=== PATIENT | female | born 1965 | race African-American/Black ===

== ENCOUNTER 2021-06-05 23:30 | Inpatient (IN) | payer OTHER ==
[~2021-06-05] VITALS: Ht 163.8 cm; Wt 102.5 kg
[2021-06-06] MEDS ORDERED: IV NORMAL SALINE 500 ML BAG IV ONE (00:15)
[2021-06-06 00:37] LABS: HEMATOCRIT 30.1 % (31.2-41.9); MEAN CORPUSCULAR VOLUME 85.9 fL (75.5-95.3); PLATELET COUNT (AUTO) 515 K/uL (179-408)
[2021-06-06 00:40] LABS: CREATININE 6.1 mg/dL (0.6-1.3); POTASSIUM 5.2 mmol/L (3.5-5.1)
[2021-06-06] MEDS ORDERED: [UNRECOGNIZED DRUG - CODE] PO (00:49)
[2021-06-06] MEDS ORDERED: MINO2.5T PO (00:49)
[2021-06-06] MEDS ORDERED: CARB15DR OP (00:49)
[2021-06-06] MEDS ORDERED: METO-357 PO (00:49)
[2021-06-06] MEDS ORDERED: ASPI81TA31 PO (00:49)
[2021-06-06] MEDS ORDERED: GABA-532 PO (00:49)
[2021-06-06] MEDS ORDERED: SEVE800T8 PO (00:49)
[2021-06-06] MEDS ORDERED: CLON0.2T PO (00:49)
[2021-06-06] MEDS ORDERED: NIFE-34 PO (00:49)
[2021-06-06] MEDS ORDERED: ONDA4TAB5 PO (00:49)
[2021-06-06] MEDS ORDERED: ACET-2154 PO (00:49)
[2021-06-06] MEDS ORDERED: METO-295 PO (00:49)
[2021-06-06] MEDS ORDERED: INSULIN LISPRO (00:49)
[2021-06-06] MEDS ORDERED: RENAL MULTIVITAMIN PO (00:49)
[2021-06-06] MEDS ORDERED: SENN-261 PO (00:49)
[2021-06-06] MEDS ORDERED: ONDA4SYR IM (00:49)
[2021-06-06] MEDS ORDERED: NPH,100I SQ (00:49)
[2021-06-06 00:53] LABS: BILIRUBIN,DIRECT 0.5 mg/dL (0.0-0.2); BILIRUBIN,TOTAL 0.8 mg/dL (0.2-1.0); TOTAL PROTEIN, SERUM 7.4 g/dL (6.4-8.2)
--- NOTE | 2021-06-06 01:31 | NUR ---
Pt. admitted to Telemetry, under care of Rusty Tomlin. Diagnosis: Renal Failure Belongs List completed. MRSA swab done.
[2021-06-06] MEDS ORDERED: DEXTROSE 50% 50 ML DISP.SYRIN IV PRN (01:45)
[2021-06-06] MEDS ORDERED: ACETAMINOPHEN 325 MG TABLET PO PRN (01:45)
[2021-06-06] MEDS ORDERED: ONDANSETRON 4 MG/2 ML VIAL IV PRN (01:45)
[2021-06-06 03:30] VITALS: BP 108/59
[2021-06-06] MEDS: PANTOPRAZOLE SODIUM 40 MG TABLET.DR PO SCH (06:15)
[2021-06-06] MEDS: BLOOD SUGAR DIAGNOSTIC 1 EACH STRIP VI SCH ×4 (07:00→20:51)
--- NOTE | 2021-06-06 08:30 | NUR ---
BLOOD PRESSURE RN HERE AND STATED TO HOLD ALL THE BLOOD PRESSURE MEDICATIONS .
[2021-06-06] MEDS: CHOLECALCIFEROL 1,000 UNIT TABLET PO SCH (08:44)
[2021-06-06] MEDS: SEVELAMER CARBONATE 800 MG TABLET PO SCH ×3 (08:45→18:30)
[2021-06-06] MEDS: ASPIRIN 81 MG TAB.CHEW PO SCH (08:56)
[2021-06-06] MEDS: NIFEdipine XL 60 MG TABSR PO SCH ×2 (09:00→18:30)
[2021-06-06] MEDS: CLONIDINE HCL 0.2 MG TABLET PO SCH ×2 (09:00→18:31)
[2021-06-06] MEDS: SENNOSIDES 1 TABLET PO SCH ×2 (09:00→17:00)
[2021-06-06] MEDS: METOPROLOL SUCCINATE XL 50 MG TAB.SR.24H PO SCH (09:00)
[2021-06-06] MEDS: MINOXIDIL 2.5 MG TABLET PO SCH ×2 (09:00→18:31)
[2021-06-06] MEDS: HEPARIN SODIUM,PORCINE 5,000 UNITS/ML VIAL SQ SCH ×2 (09:30→20:54)
--- NOTE | 2021-06-06 09:41 | NUR ---
DIALYSIS STARTED AT THIS TIME.
[2021-06-06 11:55] VITALS: BP 109/62
--- NOTE | 2021-06-06 12:18 | NUR ---
DIALYSIS STARTED AND 3 LITERS OUT AT THIS TIME PATIENT IS ALERT AND REQUESTING TO GET OUT OF BED BOTH EXT SWOLLEN PATIENT IS WEAK AND UNSAFE TO GET OUT OF BED AT THIS TIME. Addendum: 06/06/21 at 1659 by TAMMY ROBERTS RN DIALYSIS ENDED AT 1215
--- NOTE | 2021-06-06 12:26 | NUR ---
PHYSICAL THERAPY ORDERED TO EVALUATE PATIENTS ABILITY TO BE SAFELY OUT OF BED PATIENT IS UPSET AND YELLING AT THE TOP OF HER VOICE CALLED [facility] AND NOTIFIED THEM AND THEY STATED WILL ATTEMPT TO SEND SOMEONE TO COME TO SEE HER BUT NOT SURE WHEN THEY CAN COME. Addendum: 06/06/21 at 1409 by TAMMY ROBERTS RN SPOKE WITH [facility]
--- NOTE | 2021-06-06 12:30 | NUR ---
MADE MANY ATTEMPTS TO CHANGE DRESSINGS ON THE MULTIPLE AREA ON HER LEFT AND RIGHT LEGS INCLUDING HER SACRAL AREAS BUT SHE REFUSED STATED DID NOT WANT TO BE TOUCHED DID NOT WANT PICS TAKEN STATED THE PICS WAS TAKEN ALREADY BUT TOLD HER NEEDED TO RETAKE BUT SHE DECLINED.
--- NOTE | 2021-06-06 13:00 | NUR ---
ATE HER LUNCH BUT IS CONSTANTLY YELLING SHE IS UPSET AND WANTS TO GET OUT OF THE BED EXPLAINED TO THE PATIENT THAT IT IS VERY DIFFICULT DUE TO SAFETY ISSUES FOR HER AND THE EMPLOYEES TO GET HER UP WILL NEED TO WAIT FOR THE PHYSICAL THERAPY ORDER HAS BEEN PLACED.
--- NOTE | 2021-06-06 14:00 | NUR ---
PHYSICAL THERAPIST HERE AND SEEN PATIENT FOR EVALUATION SHE WAS DANGLED AT THE SIDE OF THE BED SHE WANTED BUT AFTER SITTING FOR A WHILE REFUSED TO GET BACK INTO BED BUT REQUESTED TO GET INTO THE W/CHAIR AND SHE WAS SEATED ON THE W/CHAIR AT THIS TIME WITH BOTH FEET ELEVATED.
--- NOTE | 2021-06-06 14:30 | NUR ---
AWAITING FOR THE WOUND CARE NURSE TO SEE PATIENT FOR CONSULT SO MAY BE IT WILL BE POSSIBLE TO CHECK HER WOUND CHANGE THE DRESSING AND MAY BE TAKE THE PICTURES.
--- NOTE | 2021-06-06 15:30 | NUR ---
PHYSICAL THERAPY BACH HERE TO PLACE PATIENT BACK INTO BED BUT SHE REFUSED TO GO BACK INTO BED WANTS TO STAY IN THE W/CHAIR EVEN THOUGH SHE WAS TOLD THAT THE THERAPISTS WERE LEAVING AND IT WILL BE VERY DIFFICULT TO BE ABLE TO GET HER BACK TO BED LATER PATIENT REFUSED DESPITE ALL THE EXPLAINATIONS.
[2021-06-06 15:57] VITALS: BP 157/73
[2021-06-06] MEDS: INSULIN REGULAR, HUMAN 300 UNIT/3 ML VIAL SQ PRN (16:44)
--- NOTE | 2021-06-06 17:05 | NUR ---
SHE IS SITTING ON THE W/CHAIR WITH BOTH LEGS EXTENDED AND ELEVATED ON A PILLOW RESTING ON THE FEET REST.
--- NOTE | 2021-06-06 18:00 | NUR ---
PATIENT REQUESTED ME TO LOWER HER LEGS AND REMOVE THE ELEVATION REMINDED HER THAT SINCE HER BOTH LEGS ARE SWOLLEN ITS BEST FOR HER TO KEEP THEM ELEVATED BUT SHE STARTED YELLING AND INSISTED THAT I REMOVE THE W/CHAIR LEGS AND RELEASE HER LEGS DOWN ON THE FLOOR PATIENTS RIGHT RESPECTED.WILL ENDORSE.
[2021-06-06 20:04] VITALS: BP 109/63
[2021-06-06] MEDS: GABAPENTIN 300 MG CAPSULE PO SCH (20:51)
[2021-06-06] MEDS: FOLIC ACID/VITAMIN B COMP W-C TABLET PO SCH (20:51)
[2021-06-07 04:40] VITALS: BP 135/74
--- NOTE | 2021-06-07 05:42 | NUR ---
Pt slept intermittently throughout the night. No distress noted at this time. Encouraged patient to limit fluid intake and to elevate lower extremities. Patient states that she understands, but is still not compliant. Safety and comfort provided. Tolerated all medications given. No other issues or concerns at this time, will endorse to day shift.
[2021-06-07 06:06] LABS: HEPATITIS B SURFACE AB Non Reactive (.); HEPATITIS B SURFACE AG Negative (Negative)
[2021-06-07] MEDS: PANTOPRAZOLE SODIUM 40 MG TABLET.DR PO SCH (06:16)
[2021-06-07 06:42] LABS: HEMATOCRIT 28.9 % (31.2-41.9); PLATELET COUNT (AUTO) 517 K/uL (179-408)
[2021-06-07] MEDS: BLOOD SUGAR DIAGNOSTIC 1 EACH STRIP VI SCH ×4 (06:45→20:29)
--- NOTE | 2021-06-07 07:00 | NUR ---
received patient in room awake, patient complaining of wanting to be transferred to wheel chair, advised he to please let us clean her up and called physical therapy to help put her in wheel chair.
[2021-06-07 07:04] LABS: CREATININE 5.5 mg/dL (0.6-1.3); MAGNESIUM 2.3 mg/dL (1.8-2.4); PHOSPHOROUS 7.8 mg/dL (2.5-4.9); POTASSIUM 5.7 mmol/L (3.5-5.1)
--- NOTE | 2021-06-07 07:07 | NUR ---
Dressing changed on BLE but patient refused to let us take pictures at this time.
--- NOTE | 2021-06-07 07:20 | NUR ---
provided morning care for patient, physical therapy transferred patient to wheel chair. breakfast provided. call light and belongings within reach. will continue to monitor.
[2021-06-07] MEDS: SENNOSIDES 1 TABLET PO SCH ×3 (09:00→17:00)
[2021-06-07] MEDS: SEVELAMER CARBONATE 800 MG TABLET PO SCH ×5 (09:05→17:34)
[2021-06-07] MEDS: ASPIRIN 81 MG TAB.CHEW PO SCH (09:05)
[2021-06-07] MEDS: CHOLECALCIFEROL 1,000 UNIT TABLET PO SCH (09:09)
[2021-06-07] MEDS: MINOXIDIL 2.5 MG TABLET PO SCH ×3 (09:09→17:35)
[2021-06-07] MEDS: HEPARIN SODIUM,PORCINE 5,000 UNITS/ML VIAL SQ SCH ×2 (09:10→21:00)
[2021-06-07] MEDS: INSULIN REGULAR, HUMAN 300 UNIT/3 ML VIAL SQ PRN ×4 (09:12→20:32)
[2021-06-07] MEDS: CLONIDINE HCL 0.2 MG TABLET PO SCH ×3 (10:28→17:34)
[2021-06-07] MEDS: NIFEdipine XL 60 MG TABSR PO SCH ×2 (10:29→17:35)
[2021-06-07] MEDS: METOPROLOL SUCCINATE XL 50 MG TAB.SR.24H PO SCH (10:30)
--- NOTE | 2021-06-07 10:32 | NUR ---
WOUND CARE CONSULT: PT ADAMANTLY REFUSED TO TURN FOR FULL SKIN ASSESSMENT OF SACRUM, BACK AND BUTTOCKS. PT PRESENTS WITH LARGE BLISTERS TO RT LOWER LEG, RT FOOT AND LEFT FOOT AND HEEL, ALL PRESENT ON ADMISSION. LEFT FOOT BLISTER IS VERY LARGE AND OPEN WITH SEROSANGUINOUS DRAINAGE. RT LOWER LEG BLISTER IS OPEN WITH SMALL AMOUNT OF SEROSANGUINOUS DRAINAGE. SACRAL SCARRING WITH FRAGILE SKIN NOTED IN ADMISSION PHOTO. DPM CONSULT CALLED TO DR PAULINO. RECOMMENDATIONS MADE FOR SKIN PROTECTION. DISCUSSED WITH NURSING STAFF. PT ARGUMENTATIVE AND UNCOOPERATIVE AT TIMES. MD IN AGREEMENT WITH PLAN OF CARE.
--- NOTE | 2021-06-07 10:40 | NUR ---
patient was seen by wound nurse, advised patient to keep legs elevated to provide better circulation but patient refused and was yelling to keep legs down. patient advised regarding condition of legs but continues to refuse to have legs elevated. call light and belongings kept within reach. will continue to monitor.
[2021-06-07] MEDS: SODIUM POLYSTYRENE SULFONATE 15 G/60 ML LIQUID UDC PO SCH ×3 (11:45→13:45)
[2021-06-07 12:00] VITALS: BP 147/79
--- NOTE | 2021-06-07 12:00 | NUR ---
patient seen by Kyle Mathur NP, with new orders to give kayexalate. advised patient to go back to bed for comfort as discussed effects of medication, physical therapy called for help.
--- NOTE | 2021-06-07 12:15 | NUR ---
patient refused to go back to bed, advised that it would help her be more comfortable with effects of medication kayexalate but patient refused to go back to bed. advised patient regarding medication and labs, but patient continue to refused medication. patient advise by Kareen THORPE to have dialysis but patient refused said she did not want to have it two days in a row. Kareen VET ASSISTANT notified.
[2021-06-07 16:00] VITALS: BP 141/77
--- NOTE | 2021-06-07 18:10 | NUR ---
patient in bed awake, patient cleaned and repositioned for comfort. no SOB, pain or discomfort noted at this time. call light within reach. will report to oncoming shift.
--- NOTE | 2021-06-07 19:30 | NUR ---
RECEIVED PT AWAKE, ALERT AND ORIENTEDX4. PT IN NO ACUTE DISTRESS. IV INTACT. SAFETY AND COMFORT PROVIDED. WILL CONTINUE TO MONITOR.
[2021-06-07 20:30] VITALS: BP 144/86
[2021-06-07] MEDS: FOLIC ACID/VITAMIN B COMP W-C TABLET PO SCH (21:00)
[2021-06-07] MEDS: GABAPENTIN 300 MG CAPSULE PO SCH (21:00)
[2021-06-08 04:17] VITALS: BP 142/74
[2021-06-08 06:24] LABS: HEMATOCRIT 28.4 % (31.2-41.9); MEAN CORPUSCULAR VOLUME 85.3 fL (75.5-95.3); PLATELET COUNT (AUTO) 534 K/uL (179-408)
[2021-06-08] MEDS: PANTOPRAZOLE SODIUM 40 MG TABLET.DR PO SCH (06:27)
--- NOTE | 2021-06-08 06:48 | NUR ---
PT SLEPT INTERMITTENTLY. PT IN NO ACUTE DISTRESS. IV INTACT. PRESCRIBED MEDICATION GIVEN AND PT TOLERATED IT WELL. PT TURNED AND REPOSITIONED. PT NONCOMPLIANT WITH MEDICATIONS ONLY TOOK HER INSULIN AND REFUSED THE REST OF HER MEDICATIONS ON MY SHIFT. Wound dressing change. SAFETY AND COMFORT PROVIDED. ALL NEEDS ARE MET. WILL ENDORSE TO INCOMING NURSE FOR CONTINUITY OF CARE.
[2021-06-08] MEDS: BLOOD SUGAR DIAGNOSTIC 1 EACH STRIP VI SCH ×2 (06:49→11:30)
[2021-06-08 06:53] LABS: MAGNESIUM 2.5 mg/dL (1.8-2.4)
[2021-06-08] MEDS: SEVELAMER CARBONATE 800 MG TABLET PO SCH ×2 (08:00→13:07)
[2021-06-08 08:12] LABS: PHOSPHOROUS 8.8 mg/dL (2.5-4.9); POTASSIUM 6.6 mmol/L (3.5-5.1)
[2021-06-08] MEDS: CLONIDINE HCL 0.2 MG TABLET PO SCH (09:00)
[2021-06-08] MEDS: ASPIRIN 81 MG TAB.CHEW PO SCH (09:00)
[2021-06-08] MEDS: METOPROLOL SUCCINATE XL 50 MG TAB.SR.24H PO SCH (09:00)
[2021-06-08] MEDS: CHOLECALCIFEROL 1,000 UNIT TABLET PO SCH (09:00)
[2021-06-08] MEDS: MINOXIDIL 2.5 MG TABLET PO SCH (09:00)
[2021-06-08] MEDS: NIFEdipine XL 60 MG TABSR PO SCH (09:00)
[2021-06-08] MEDS: HEPARIN SODIUM,PORCINE 5,000 UNITS/ML VIAL SQ SCH (09:00)
[2021-06-08] MEDS: SENNOSIDES 1 TABLET PO SCH (09:00)
[2021-06-08] MEDS ORDERED: SODIUM POLYSTYRENE SULFONATE 15 G/60 ML LIQUID UDC PO ONE (09:30)
[2021-06-08] MEDS ORDERED: CALCIUM GLUCONATE IV 1 GM in IV NORMAL SALINE 100 ML IV ONE (10:00)
[2021-06-08 12:58] VITALS: BP 126/62
[2021-06-08] MEDS: INSULIN REGULAR, HUMAN 300 UNIT/3 ML VIAL SQ PRN (13:09)
[2021-06-08 15:39] VITALS: BP 126/65
--- NOTE | 2021-06-08 16:20 | NUR ---
Discharge Note: Report given to Taylor @ [facility]. Pt A&Ox4, Anxious. V/S WDL, no c/o of pain. Stating 98% on 3L. In stable condition. IV d'c before departure, no s/s of infection, no redness or swelling noted. Discharge instructions discussed with pt, signed copy sent with pt. All belongings accounted for, 1 ross T-shirt and 1 yellow bracelet, signed copy with pt and 1 copy in the chart. Pt refused pictures of wound, educated pt on importance, pt verbalized understanding. No meds or valuables in pharmacy or lock box. All questions asked and answered.
== END 2021-06-08 16:20 | DRG 194 ==
LOC: ER 23:31 → TELE3 06-06 03:07 → MEDSURG3 06-06 18:22
PROVIDERS: ADMIT Nurse Practitioner Family; ATTEND Student in an Organized Health Care Education/Training Program
PROC: 5A1D70Z Performance of Urinary Filtration, Intermittent, Less than 6 Hours Per Day (ICD-10-PCS; principal; 2021-06-06)
DX: I13.2 Hypertensive heart and chronic kidney disease with heart failure and with stage 5 chronic kidney disease, or end stage renal disease (principal); J96.01 Acute respiratory failure with hypoxia; I21.A1 Myocardial infarction type 2; E11.22 Type 2 diabetes mellitus with diabetic chronic kidney disease; I50.9 Heart failure, unspecified; N18.6 End stage renal disease; Z99.2 Dependence on renal dialysis; F31.9 Bipolar disorder, unspecified; Z66 Do not resuscitate; D63.1 Anemia in chronic kidney disease; N25.0 Renal osteodystrophy; Z88.1 Allergy status to other antibiotic agents; Z88.8 Allergy status to other drugs, medicaments and biological substances; I87.2 Venous insufficiency (chronic) (peripheral); S90.822A Blister (nonthermal), left foot, initial encounter; S90.821A Blister (nonthermal), right foot, initial encounter; X58.XXXA Exposure to other specified factors, initial encounter; Y92.129 Unspecified place in nursing home as the place of occurrence of the external cause; L97.819 Non-pressure chronic ulcer of other part of right lower leg with unspecified severity; Z79.4 Long term (current) use of insulin; F41.9 Anxiety disorder, unspecified; Z20.822 Contact with and (suspected) exposure to COVID-19
CPT/HCPCS: 36415; 70030-TC; 71045; 83690; 83735; 84100; 85025; 86706; 87340; 90937; 93005; 97161; A4663; G0378; J0610; J1644; J1815; J2405; J3490; J7040